=== PATIENT | female | born 1935 | race Caucasian/White ===

== ENCOUNTER → 2017-03-31 | Outpatient (CLI) | payer OTHER ==
[~2017-03-31] MED LIST: CELEXA40 MG PO; DIABETA 5 MG TAB5 MG PO; GLUCOPHAGE 500500 MG PO; JANUVIA50 MG PO; LEVOTHYROXINE88 MCG PO; LIPITOR TAB 2020 MG PO; LISINOPRIL2.5 MG PO; PIOGLITAZONE HC30 MG PO; TYLENOL 325MG325 MG PO; [UNRECOGNIZED DRUG - OTHER] PO
== END ==
LOC: MAMO 09:40
DX: Z12.31 Encounter for screening mammogram for malignant neoplasm of breast (principal); Z80.3 Family history of malignant neoplasm of breast; Z90.710 Acquired absence of both cervix and uterus
CPT/HCPCS: G0202

== ENCOUNTER → 2017-04-13 | Outpatient (CLI) | payer OTHER | LOC: HEART 5 07:57 | DX: E11.9 Type 2 diabetes mellitus without complications (principal); R94.31 Abnormal electrocardiogram [ECG] [EKG]; E78.5 Hyperlipidemia, unspecified; I10 Essential (primary) hypertension | CPT/HCPCS: 78452; 93306; A9502; J0280; J2785 ==

== ENCOUNTER → 2017-08-02 | Outpatient (CLI) | payer OTHER | LOC: LAB 15:44 | DX: R10.32 Left lower quadrant pain (principal) | CPT/HCPCS: 36415; 80076; 82565; 84520 ==